=== PATIENT | male | born 1975 | race Caucasian/White ===

== ENCOUNTER → 2018-03-14 | Outpatient (CLI) | payer BC, OTHER ==
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
== END | disposition home or self-care (01) ==
LOC: SLEEP 13:13
PROVIDERS: ATTEND Internal Medicine Critical Care Medicine
DX: G47.10 Hypersomnia, unspecified (principal); E66.01 Morbid (severe) obesity due to excess calories; F41.9 Anxiety disorder, unspecified; Z68.43 Body mass index [BMI] 50.0-59.9, adult; Z98.890 Other specified postprocedural states; Z79.82 Long term (current) use of aspirin; Z79.899 Other long term (current) drug therapy
CPT/HCPCS: 99211

== ENCOUNTER 2024-03-15 09:37 | Day surgery (SDC) | payer OTHER ==
[~2024-03-15 09:37] MED LIST: LACTATED RINGERS 1,000 ML IV SCH; LIDOCAINE 1% (10MG/ML) FOR IV START INTRADERMA PRN; ONDANSETRON 4 MG/2 ML VIAL IVP PRN; droPERidol 5 MG/2 ML VIAL IVP ONE
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
[2024-03-15 10:25] VITALS: TEMP 97.1
[2024-03-15] MEDS: IV FLUID CONTINUATION 1,000 ML IV ONE (10:28)
[2024-03-15] MEDS: ACETAMINOPHEN TAB 500 MG TAB PO PRN (10:37)
[2024-03-15] MEDS: DEXAMETHASONE SOD PHOSPHATE 4 MG/ML 1 ML VIAL IV ONE (10:38)
[2024-03-15] MEDS: ONDANSETRON 4 MG/2 ML VIAL IVP ONE (10:38)
[2024-03-15] MEDS: SCOPOLAMINE 1 MG/72 HR PATCH TRANSDERM ONE (10:38)
[2024-03-15] MEDS: TAMSULOSIN 0.4 MG CAP.ER.24H PO STA (10:38)
[2024-03-15] MEDS: LACTATED RINGERS 1,000 ML IV SCH (10:39)
[2024-03-15 10:44] LABS: Glucose,Whole Blood 99 mg/dL (70-110)
[2024-03-15 10:56] LABS: Basophils # (A) 0.1 k/uL (0-0.2); Basophils % (A) 1 %; Eosinophils # (A) 0.6 k/uL (0-0.7); Eosinophils % (A) 6 %; HCT 45.8 % (39.0-53.0); HGB 14.3 gm/dL (13.0-17.5); Hypochromasia Slight; Lymphocytes # (A) 2.6 k/uL (1.0-4.8); Lymphocytes % (A) 27 %; MCH 28.1 pg (25.0-35.0); MCHC 31.3 g/dL (31.0-37.0); MCV 89.7 fL (80.0-100.0); Mean Platelet Volume 8.3; Monocytes # (A) 0.6 k/uL (0-1.0); Monocytes % (A) 6 %; Neutrophils # (A) 5.7 k/uL (1.3-7.7); Neutrophils % (A) 58 %; Platelet Count 201 k/uL (150-450); RDW 13.5 % (11.5-15.5); WBC 9.8 k/uL (3.8-10.6)
[2024-03-15] MEDS: fentaNYL (PF) 50 MCG/ML 2 ML AMP IVP STA (11:06)
[2024-03-15] MEDS: MIDAZOLAM 2 MG/2 ML VIAL IV ONE (11:14)
--- NOTE | 2024-03-15 11:14 | P.HPADDEND ---
H&P Addendum H&P Addendum Date: 03/15/24 Patient presented high risk for any surgical invention due to atrial fibrillation history of blood thinner use of multiple abdominal surgeries. Patient presented to preoperative area angry of only having hernia repair done. Patient reports he wants his gallbladder out too. Consultation and referral o nly emphasized ventral hernia repair. Additionally, gallbladder surgery, a contaminate procedure contraindicated with clean procedure ventral hernia which is not routinely performed at the time of surgery with increased risks. At this time, patient only authorized for ventral hernia repair. Patient was offered to cancel surgery if dissatisfied. Patient changed mind and opted to proceed with ventral hernia repair. "I have no symptoms from my gallbladder." Patient primarily complains of "my hernia pops out," and wants something done today. Overall, patient elevated risk. Patient verbalized understanding and wished to proceed. Patient said yes to proceed with ventral hernia repair in the presence of preoperative nurse, anesthesia team.
[2024-03-15] MEDS: HEPARIN SODIUM,PORCINE 5,000 UNIT/ML 1 ML VIAL SQ PRN (11:16)
[2024-03-15] MEDS: MELOXICAM 7.5 MG TAB PO PRN (11:22)
--- NOTE | 2024-03-15 11:22 | P.ANPRN ---
Procedure Note - Anesthesia - Nerve Block Performed Bilateral Transversus Abdominis Time Out Performed: Yes (1106) Date of Procedure: 03/15/24 Procedure Start Time: 11:10 Procedure Stop Time: 11:17 Location of Patient: PreOp Indication: Acute Post-Operative Pain, Analgesia, Requested by Surgeon Sedation Type: Sedate with meaningful contact maintained Preparation: Sterile Prep Position: Supine Catheter: None Ultrasound used to visualize needle placement: Yes Injectate: 0.5% Ropivacaine (see comment for volume) (0.5% 10mL + 10mL Normal Saline per side) Blood Aspirated: No Pain Paresthesia on Injection Noted: No Resistance on Injection: Normal Image Stored and Saved: Yes Events: Uneventful and Well Tolerated
[2024-03-15 11:26] LABS: ALT 33 U/L (4-49); AST 26 U/L (17-59); African American GFR (CKD) >90 (>60 ml/min/1.73 sqM); Albumin 4.2 g/dL (3.5-5.0); Alkaline Phosphatase 74 U/L (38-126); Anion Gap 6 mmol/L; Blood Urea Nitrogen 28 mg/dL (9-20); Calcium 9.6 mg/dL (8.4-10.2); Carbon Dioxide 32 mmol/L (22-30); Chloride 102 mmol/L (98-107); Glucose 103 mg/dL (74-99); Non-African American GFR(CKD) 86 (>60 ml/min/1.73 sqM); Potassium 4.7 mmol/L (3.5-5.1); Sodium 140 mmol/L (137-145); Total Bilirubin 1.2 mg/dL (0.2-1.3)
[2024-03-15] MEDS ORDERED: GLYCOPYRROLATE 0.2 MG/ML 2 ML VIAL ONE (11:29)
[2024-03-15] MEDS ORDERED: PHENYLEPHRINE-0.9% NACL SYG 1,000 MCG/10 ML SYRINGE ONE (11:29)
[2024-03-15] MEDS ORDERED: NEOSTIGMINE 1 MG/ML 10 ML VIAL ONE (11:29)
[2024-03-15] MEDS ORDERED: LIDOCAINE 1% INJ 10MG/ML (20 ML MDV) ONE (11:29)
[2024-03-15] MEDS ORDERED: PROPOFOL 10 MG/ML 20 ML VIAL IV ONE (11:29)
[2024-03-15] MEDS ORDERED: MIDAZOLAM 2 MG/2 ML VIAL ONE (11:29)
[2024-03-15] MEDS ORDERED: fentaNYL (PF) 50 MCG/ML 2 ML AMP ONE (11:29)
[2024-03-15] MEDS ORDERED: ROCURONIUM 10 MG/ML (5 ML VIAL) IV ONE (11:29)
[2024-03-15] MEDS: LIDOCAINE 1%-EPI 1:100,000 20 ML VIAL SQ ONE (12:04)
[2024-03-15] MEDS: LACTATED RINGERS 1,000 ML IV ONE (12:54)
[2024-03-15 15:14] VITALS: RESP 20
[2024-03-15] MEDS: HYDROmorphone 0.5 MG/0.5 ML SYRINGE IVP PRN (15:20)
[2024-03-15 16:53] VITALS: BP 118/72; PULSE 69
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
== END 2024-03-15 16:37 | disposition home or self-care (01) ==
LOC: OR 09:37
PROVIDERS: ATTEND Surgery Plastic and Reconstructive Surgery
DX: K43.0 Incisional hernia with obstruction, without gangrene (principal); G89.18 Other acute postprocedural pain; E11.9 Type 2 diabetes mellitus without complications; I48.20 Chronic atrial fibrillation, unspecified; Z68.35 Body mass index [BMI] 35.0-35.9, adult; E66.01 Morbid (severe) obesity due to excess calories; Z79.01 Long term (current) use of anticoagulants; Z79.84 Long term (current) use of oral hypoglycemic drugs; Z88.0 Allergy status to penicillin; I11.0 Hypertensive heart disease with heart failure; I50.9 Heart failure, unspecified; K21.9 Gastro-esophageal reflux disease without esophagitis; G47.33 Obstructive sleep apnea (adult) (pediatric); K81.1 Chronic cholecystitis; K66.0 Peritoneal adhesions (postprocedural) (postinfection)
CPT/HCPCS: 49594; 64488; S2900; 80053; 85025

== ENCOUNTER → 2024-05-11 | Day surgery (SDC) | payer OTHER ==
[2024-05-10 08:43] VITALS: BMI 36.6
[~2024-05-11] MED LIST changes: +GLYCOPYRROLATE 0.2 MG/ML 2 ML VIAL ONE; +HYDROmorphone (PF) 1 MG/ML ONE; -LACTATED RINGERS 1,000 ML IV SCH; -LIDOCAINE 1% (10MG/ML) FOR IV START INTRADERMA PRN; +LIDOCAINE 1% INJ 10MG/ML (20 ML MDV) ONE; +NEOSTIGMINE 1 MG/ML 10 ML VIAL ONE; -ONDANSETRON 4 MG/2 ML VIAL IVP PRN; +PHENYLEPHRINE 10 MG/ML VIAL ONE; +PROPOFOL 10 MG/ML 20 ML VIAL IV ONE; +ROCURONIUM 10 MG/ML (5 ML VIAL) IV ONE; +SUCCINYLCHOLINE CHLORIDE 200 MG/10 ML VIAL IV ONE; -droPERidol 5 MG/2 ML VIAL IVP ONE; +fentaNYL (PF) 50 MCG/ML 2 ML AMP ONE
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
[2024-05-11] MEDS: IV FLUID CONTINUATION 1,000 ML IV ONE (13:00)
[2024-05-11 13:09] LABS: Glucose,Whole Blood 98 mg/dL (70-110)
[2024-05-11] MEDS: ACETAMINOPHEN TAB 500 MG TAB PO PRN (13:09)
[2024-05-11] MEDS: LACTATED RINGERS 1,000 ML IV SCH (13:10)
[2024-05-11] MEDS: ONDANSETRON 4 MG/2 ML VIAL IVP PRN (13:10)
[2024-05-11] MEDS: MIDAZOLAM 2 MG/2 ML VIAL IV PRN (13:14)
[2024-05-11 13:20] LABS: Basophils % (A) 0 %; Eosinophils # (A) 0.4 k/uL (0-0.7); Eosinophils % (A) 3 %; HCT 48.4 % (39.0-53.0); HGB 15.4 gm/dL (13.0-17.5); Hypochromasia Moderate; Lymphocytes # (A) 2.9 k/uL (1.0-4.8); Lymphocytes % (A) 28 %; MCHC 31.8 g/dL (31.0-37.0); Mean Platelet Volume 9.1; Monocytes # (A) 0.7 k/uL (0-1.0); Monocytes % (A) 6 %; Neutrophils # (A) 6.3 k/uL (1.3-7.7); Neutrophils % (A) 60 %; Platelet Count 253 k/uL (150-450); RDW 13.3 % (11.5-15.5); WBC 10.5 k/uL (3.8-10.6)
[2024-05-11 13:28] LABS: Prothrombin Time 10.8 sec (10.0-12.5)
[2024-05-11 13:38] LABS: ALT 21 U/L (4-49); African American GFR (CKD) >90 (>60 ml/min/1.73 sqM); Albumin 4.5 g/dL (3.5-5.0); Anion Gap 5 mmol/L; Blood Urea Nitrogen 28 mg/dL (9-20); Calcium 9.5 mg/dL (8.4-10.2); Carbon Dioxide 32 mmol/L (22-30); Chloride 100 mmol/L (98-107); Glucose 102 mg/dL (74-99); Non-African American GFR(CKD) 87 (>60 ml/min/1.73 sqM); Sodium 137 mmol/L (137-145); Total Protein 7.9 g/dL (6.3-8.2)
[2024-05-11] MEDS: HEPARIN SODIUM,PORCINE 5,000 UNIT/ML 1 ML VIAL SQ PRN (13:39)
[2024-05-11] MEDS: DEXAMETHASONE SOD PHOSPHATE 4 MG/ML 1 ML VIAL IVP STA (13:44)
[2024-05-11 13:59] LABS: AST 46 U/L (17-59); Potassium 5.9 mmol/L (3.5-5.1)
[2024-05-11 14:00] LABS: Alkaline Phosphatase 50 U/L (38-126)
[2024-05-11] MEDS: LIDOCAINE 1%-EPI 1:100,000 20 ML VIAL SQ ONE (14:10)
[2024-05-11] MEDS: LACTATED RINGERS 1,000 ML IV ONE (15:22)
[2024-05-11 16:01] VITALS: TEMP 97
[2024-05-11] MEDS: HYDROmorphone 0.5 MG/0.5 ML SYRINGE IVP PRN (16:04)
[2024-05-11 18:47] VITALS: BP 123/69; PULSE 98; RESP 18
--- NOTE | 2024-05-15 18:21 | P.OP ---
Date of Procedure: 05/11/24 Description of Procedure: SURGEON: STELLA MAYES MD PREOPERATIVE DIAGNOSES: 1. Symptomatic gallstone 2. Right upper quadrant abdominal pain POSTOPERATIVE DIAGNOSES: 1. Symptomatic gallstone 2. Right upper quadrant abdominal pain 3. Chronic cholecystitis 4. Peritoneal adhesions, right upper quadrant OPERATION: Robotic-assisted da Ra Xi laparoscopic cholecystectomy, multiport with FIREFLY ESTIMATED BLOOD LOSS: 10 mL. SPECIMENS REMOVED: Gallbladder. COMPLICATIONS: None. OPERATIVE FINDINGS: 1. Moderate scarring over entire gallbladder with peritoneal adhesions, pericholecystic with features of chronic cholecystitis 2. Multiple gallstones over 6 identified at least 8 mm in size INDICATIONS: The patient is a 17-year-old female who presents with symptomatic gallstones. Robotic assisted laparoscopic approach was described. Benefits and risks of the procedure including but not limited to bleeding, infection, injury to the biliary tree was described. Informed consent was obtained. DESCRIPTION OF PROCEDURE: Patient was brought to the operating room, placed in supine position. After general induction, the abdomen had been prepped and draped in standard sterile fashion. The robotic da Ra XI system was primed. After a timeout protocol was performed, the patient had been prepped and draped in standard sterile fashion. The patient was injected with indocyanine green. A 5 mm 0 degrees laparoscopic trocar entry was performed along the left upper quadrant. The abdomen insufflated to 15 mmHg pressure which was tolerated well. Diagnostic laparoscopy demonstrated no injury to bowel viscera or mesentery. The liver surface was unremarkable. Next, two 8 mm robotic ports were placed along the right upper abdomen. The camera 8-mm port was maintained along the epigastrium. Another 8 mm port was placed along the left upper abdominal wall after exchanging the 5 mm port. Please note that the ports were placed at least 10 to 15 cm away from the target anatomy of the gallbladder. The robot was docked along the left lateral abdomen. The patient was repositioned in reverse Trendelenburg position. Using a grasper for arm 1, a grasper for arm 4, including hook cautery for arm 3, the robotic system was docked and primed as described. Instruments were interchanged by the pharmacy affairs assistant including hook cautery, Bovie cautery and clip appliers. I had sat at the console. The gallbladder was scarred with peritoneal adhesions. Lysis of adhesions was performed to free the gallbladder from the surrounding tissues. Next attention was brought to the infundibulum and cystic structures. The infundibulum and cystic duct were dissected free from surrounding tissues. The cystic duct was isolated. FIREFLY was used to identify the cystic artery and cystic structures. A critical view of safety was obtained. Large PLASTIC clips were used throughout the entire case. Using a clip record filing clerk, 2 clips were placed at the junction of the infundibulum and cystic duct. The cystic duct was divided between clips. Next, the cystic artery was similarly clipped and cauterized. Electro-Bovie cautery was used to remove the gallbladder from the hepatic fossa. Hemostasis was checked and found to be adequate. The robot was undocked. I re-scrubbed into the case. Using a 10 mm Endo Catch bag via the left upper quadrant incision, the specimen was removed from the abdominal cavity. All pneumoperitoneum instruments were evacuated from the abdominal cavity. The incisions were reapproximated using 4-0 Monocryl in an interrupted subcuticular fashion. Fascial defects were less than 8 mm in size. Please note along the trocar sites, local anesthetic was placed as a field block prior to insertion of all instruments. Liquid glue was applied to the skin. At the end of the procedure needle, sponge, and instrument count had been verified correct by the assembler surgical garment. The patient was transferred to postanesthesia care unit in stable condition. Intraoperative films were shared with the patient's family. Plan - Discharge Summary Discharge Rx Participant: Yes New Discharge Prescriptions: Continue Fluticasone Nasal [place] [Flonase Nasal [place]] 1 spray EA NOSTRIL DAILY Apixaban [Eliquis] 5 mg PO BID Pantoprazole [Protonix] 40 mg PO DAILY Cetirizine HCl [Zyrtec] 10 mg PO DAILY Simethicone [Gas-X] 125 mg PO AC-TID PRN #20 capsule PRN Reason: Pain Furosemide [Lasix] 80 mg PO DAILY PRN PRN Reason: Edema metOLazone 5 mg PO DAILY metFORMIN HCL 1,000 mg PO DAILY Metoprolol Succinate [Metoprolol Succinate ER] 25 mg PO DAILY Simethicone [Gas-X] 125 mg PO AC-TID PRN #30 capsule PRN Reason: Pain Discharge Medication List Apixaban [Eliquis] 5 mg PO BID 10/21/23 [History] Cetirizine HCl [Zyrtec] 10 mg PO DAILY 10/21/23 [History] Fluticasone Nasal [place] [Flonase Nasal [place]] 1 spray EA NOSTRIL DAILY 10/21/23 [History] Furosemide [Lasix] 80 mg PO DAILY PRN 10/21/23 [History] Pantoprazole [Protonix] 40 mg PO DAILY 10/21/23 [History] metFORMIN HCL 1,000 mg PO DAILY 10/21/23 [History] metOLazone 5 mg PO DAILY 10/21/23 [History] Metoprolol Succinate [Metoprolol Succinate ER] 25 mg PO DAILY 03/12/24 [History] Simethicone [Gas-X] 125 mg PO AC-TID PRN #20 capsule 03/15/24 [Rx] Simethicone [Gas-X] 125 mg PO AC-TID PRN #30 capsule 03/20/24 [Rx] Follow up Appointment(s)/Referral(s): Stella Mayes MD [STAFF PHYSICIAN] - 05/15/24 6:00 pm Patient Instructions/Handouts: *Surgery [facility] - (Anesthesia) Discharge Instructions Outpatient Surgery, Low Fat Diet (DC), Laparoscopic Cholecystectomy (DC) Activity/Diet/Wound Care/Special Instructions: DR TO CALL YOU AT HOME NO LONG DRIVES OR AIRPLANE RIDES OVER 60 MINUTES FOR THE NEXT 2 WEEKS 05/25/24 DUE TO HIGH RISK OF PULMONARY EMBOLISM/DVTs May drive in 48 hrs until complete recovery from anesthesia Recommend low-fat diet for the next 2 days. No lifting over 10 pounds in 2 weeks until 05/25/24 May shower. No bath tub soaks for two weeks until 05/25/24 Diet as tolerated. Use Tylenol, simethicone cheduled for the next 24-48 hours for best pain relief. Use ice along incisions for today to prevent swelling. OK TO RESTART ELIQUIS 05/14 Discharge Disposition: HOME SELF-CARE
== END | disposition home or self-care (01) ==
LOC: OR 10:39
PROVIDERS: ATTEND Surgery Plastic and Reconstructive Surgery
DX: K80.11 Calculus of gallbladder with chronic cholecystitis with obstruction (principal); I48.91 Unspecified atrial fibrillation; I11.0 Hypertensive heart disease with heart failure; I50.9 Heart failure, unspecified; G47.33 Obstructive sleep apnea (adult) (pediatric); E66.01 Morbid (severe) obesity due to excess calories; Z68.36 Body mass index [BMI] 36.0-36.9, adult; K66.0 Peritoneal adhesions (postprocedural) (postinfection); E11.9 Type 2 diabetes mellitus without complications; K21.9 Gastro-esophageal reflux disease without esophagitis; Z79.01 Long term (current) use of anticoagulants; Z79.84 Long term (current) use of oral hypoglycemic drugs; Z79.899 Other long term (current) drug therapy; Z95.2 Presence of prosthetic heart valve; Z88.0 Allergy status to penicillin; Z91.048 Other nonmedicinal substance allergy status
CPT/HCPCS: 47562; S2900; 80053; 85025; 85610; 88304